=== PATIENT | female | born 1980 | race Caucasian/White ===

== ENCOUNTER 2018-02-11 13:55 | Emergency (ER) | payer MEDICAID, SELFPAY ==
[~2018-02-11] VITALS: Ht 157.5 cm; Wt 65.0 kg
[2018-02-11 14:00] VITALS: BP 123/79
== END 2018-02-11 15:36 | disposition home or self-care (01) ==
LOC: ED 15:30
DX: B34.9 Viral infection, unspecified (principal)
CPT/HCPCS: 71046; 99284

== ENCOUNTER 2019-11-03 11:59 | Emergency (ER) | payer MEDICAID ==
[~2019-11-03] VITALS: Ht 157.5 cm; Wt 66.8 kg
[2019-11-03 12:26] VITALS: BP 140/99
[2019-11-03 13:31] LABS: RAPID INFLUENZA A Negative (Negative); RAPID INFLUENZA B Negative (Negative)
== END 2019-11-03 14:33 ==
LOC: ED 14:27
DX: J06.9 Acute upper respiratory infection, unspecified (principal); F17.200 Nicotine dependence, unspecified, uncomplicated
CPT/HCPCS: 71046; 87081; 87400; 87880; 99284

== ENCOUNTER 2019-11-08 21:17 | Emergency (ER) | payer MEDICAID ==
[~2019-11-08] VITALS: Ht 157.5 cm; Wt 66.6 kg
[2019-11-08 21:21] VITALS: BP 139/114
[2019-11-08] MEDS ORDERED: LIDOCAINE 1%-EPI 1:100K, 20ML SQ ONE (21:30)
[2019-11-08] MEDS ORDERED: DIPH,PERTUSS(ACELL),TET VAC/PF 0.5 ML IM-VACC ONE ×2 (21:30→22:10)
[2019-11-08] MEDS ORDERED: LIDOCAINE 1%-EPI 1:100K, 20ML ONE (22:10)
[2019-11-08] MEDS ORDERED: ACETAMINOPHEN 325 MG TABLET PO ONE (22:30)
[2019-11-08] MEDS ORDERED: LIDOCAINE-MPF 1%, 5ML ONE (22:30)
[2019-11-08] MEDS ORDERED: ACETAMINOPHEN 325 MG TABLET ONE (22:48)
== END 2019-11-08 23:02 | disposition home or self-care (01) ==
LOC: ED 22:51
DX: J34.0 Abscess, furuncle and carbuncle of nose (principal); L02.01 Cutaneous abscess of face; F17.210 Nicotine dependence, cigarettes, uncomplicated; F17.200 Nicotine dependence, unspecified, uncomplicated; Z72.9 Problem related to lifestyle, unspecified; F14.10 Cocaine abuse, uncomplicated
CPT/HCPCS: 10061; 90471; 90715; 99284

== ENCOUNTER 2019-11-10 20:19 | Emergency (ER) | payer MEDICAID ==
[~2019-11-10] VITALS: Ht 157.5 cm; Wt 65.0 kg
[2019-11-10 20:38] VITALS: BP 153/98
--- NOTE | 2019-11-10 22:41 | NUR ---
pt not present in the lobby when called x3.
== END 2019-11-10 22:44 | disposition left against medical advice (07) ==
LOC: ED 20:25
DX: Z48.01 Encounter for change or removal of surgical wound dressing (principal); Z53.21 Procedure and treatment not carried out due to patient leaving prior to being seen by health care provider

== ENCOUNTER 2019-11-11 14:31 | Emergency (ER) | payer MEDICAID ==
[~2019-11-11] VITALS: Ht 157.5 cm; Wt 66.0 kg
[2019-11-11 15:17] VITALS: BP 106/52
== END 2019-11-11 15:45 | disposition home or self-care (01) ==
LOC: ED 15:35
DX: Z48.01 Encounter for change or removal of surgical wound dressing (principal); F17.210 Nicotine dependence, cigarettes, uncomplicated
CPT/HCPCS: 99281